=== PATIENT | male | born 1970 | race Two or more races ===

== ENCOUNTER 2023-12-18 19:26 | Inpatient (IN) | payer OTHER ==
[~2023-12-18] VITALS: Ht 175.3 cm; Wt 81.3 kg
[2023-12-18] MEDS ORDERED: ACETAMINOPHEN ES 500 MG TABLET ONE (20:05)
[2023-12-18] MEDS ORDERED: VANCOMYCIN 1 GM /D5W 250 ML PB IV ONE (20:05)
[2023-12-18] MEDS ORDERED: PIPERACI/TAZO 3.375GM/D5W 50ML PB IV ONE (20:05)
[2023-12-18] MEDS: IV LR 1000 ML 1,000 ML BAG IV ONE (20:50)
[2023-12-18 20:54] LABS: BASOPHILS % (AUTO) 0.3 % (0.0-2.0); HEMATOCRIT 38 % (39-51); HEMOGLOBIN 13.1 g/dL (13.5-17.5); LYMPHOCYTES # (AUTO) 0.6 K/uL (0.8-4.8); LYMPHOCYTES % (AUTO) 5.5 % (20.0-44.0); MEAN CORPUSCULAR HEMOGLOBIN 28 PG (26.0-33.0); MEAN CORPUSCULAR HGB CONC 34 g/dl (31.0-36.0); MEAN CORPUSCULAR VOLUME 83 fL (80-96); MONOCYTES # (AUTO) 0.6 K/uL (0.1-1.30); NEUTROPHILS # (AUTO) 9.2 K/uL (1.8-8.9); NEUTROPHILS % (AUTO) 88.2 % (43.0-81.0); PLATELET COUNT (AUTO) 324 K/uL (150-450); RED CELL DISTRIBUTION WIDTH 13.3 % (11.5-15.0); WHITE BLOOD COUNT (AUTO) 10.5 K/uL (4.3-11.0)
[2023-12-18 20:54] LABS: VBG BASE EXCESS -0.6 mmol/L (-3-3); VBG COHb 2.4 %; VBG MetHb 0.2 %; VBG O2Hb 66.4 %; VBG OXYGEN SATURATION 68.2 %; VBG PCO2 38.4 mmHg (40-52); VBG PH 7.409 (7.31-7.41); VBG PO2 33.4 mmHg (30-50); VBG TOTAL HEMOGLOBIN 14.2 G/dL (13.5-18.0); VENT MODE, VBG Venous
[2023-12-18] MEDS: PIPERACILLIN /TAZOBACTAM 3.375 G in IV D5W 50 ML IV ONE (21:00)
[2023-12-18 21:02] LABS: CALCIUM, SERUM 9.2 mg/dL (8.5-10.1); CARBON DIOXIDE 25 mmol/L (21-32); CHLORIDE 100 mmol/L (98-107); CREATININE 0.8 mg/dL (0.6-1.3); GLUCOSE 175 mg/dL (74-106); SODIUM SERUM 132 mmol/L (136-145); UREA NITROGEN, BLOOD 7 mg/dL (7-18)
[2023-12-18 21:05] LABS: INR 1.12 (0.91-1.10); PARTIAL THROMBOPLASTIN TIME 32.1 SEC (24.3-34.3); PROTHROMBIN TIME 11.4 SECS (9.2-11.1)
[2023-12-18 21:08] LABS: ALANINE AMINOTRANSFERASE 19 U/L (12-78); ALBUMIN 3.6 g/dL (3.4-5.0); ALKALINE PHOSPHATASE 70 U/L (46-116); ASPARTATE AMINOTRANSFERASE 18 U/L (15-37); BILIRUBIN,DIRECT 0.3 mg/dL (0.0-0.2); BILIRUBIN,TOTAL 1.1 mg/dL (0.2-1.0); TOTAL PROTEIN, SERUM 7.5 g/dL (6.4-8.2)
[2023-12-18 21:10] LABS: LACTIC ACID 1.2 mmol/L (0.4-2.0)
[2023-12-18 21:20] LABS: ALCOHOL, BLOOD < 3 mg/dL (0-10)
[2023-12-18 21:21] LABS: ACETAMINOPHEN <10 ug/ml (10-30); SALICYLATE 2.3 mg/dL (2.8-20.0)
[2023-12-18 21:27] LABS: SERUM AMMONIA 23 umol/L (11-32)
[2023-12-18 21:43] LABS: THYROID STIMULATING HORMONE 1.098 uIU/mL (0.358-3.74)
[2023-12-18] MEDS: ACETAMINOPHEN ES 500 MG TABLET PO ONE (22:13)
[2023-12-18] MEDS: VANCOMYCIN 1 GM in IV D5W 250 ML IV ONE (22:13)
[2023-12-18] MEDS ORDERED: ALBUTEROL FS 2.5 MG/0.5 ML VIAL.NEB NEB PRN (22:30)
[2023-12-18] MEDS ORDERED: ONDANSETRON HCL/PF 4 MG/2 ML VIAL IVP PRN (22:30)
[2023-12-18] MEDS ORDERED: MORPHINE SULFATE INJ 2 MG/ML DISP.SYRIN IV PRN (22:30)
[2023-12-18] MEDS ORDERED: hydrALAZINE HCL IV 20 MG VIAL IV PRN (22:30)
[2023-12-18] MEDS ORDERED: DEXTROSE 50%-WATER 50 ML DISP.SYRIN IV PRN (22:30)
[2023-12-18] MEDS: IV NS 0.9% 1,000 ML BAG IV ONE (22:46)
[2023-12-18 22:56] LABS: APPEARANCE,URINE CLEAR (CLEAR); BILIRUBIN,URINE 1+ (NEGATIVE); BLOOD, URINE TRACE-INTA Ery/uL (NEGATIVE); COLOR,URINE YELLOW (YELLOW); KETONES,URINE 1+ mg/dL (NEGATIVE); LEUKOCYTE ESTERASE ,URINE NEGATIVE (NEGATIVE); NITRITE, URINE NEGATIVE (NEGATIVE); PH,URINE 6.5 (5.0-8.0); PROTEIN,URINE 1+ mg/dl (NEGATIVE); UGLUCOSE NEGATIVE (NEGATIVE)
[2023-12-18 23:08] LABS: AMPHETAMINE, URINE NEGATIVE (NEGATIVE); BARBITURATE, URINE NEGATIVE (NEGATIVE); BENZODIAZEPINE, URINE NEGATIVE (NEGATIVE); CANNABINOID, URINE NEGATIVE (NEGATIVE); COCCAINE, URINE NEGATIVE (NEGATIVE); OPIATE, URINE NEGATIVE (NEGATIVE); PHENCYCLIDINE SCREEN,URINE NEGATIVE (NEGATIVE)
[2023-12-19 01:36] LABS: ADD URINE CULTURE NO; BACTERIA,URINE None seen /HPF (None Seen); MUCUS,URINE Few /LPF (None Seen); SQUAMOUS EPITHELIAL CELL,UR None Seen /HPF (None Seen); WBC,URINE NONE SEEN /HPF (0-3)
[2023-12-19] MEDS ORDERED: ATOR10TA PO (03:32)
[2023-12-19] MEDS ORDERED: LEVO25TA7 PO (03:32)
[2023-12-19] MEDS ORDERED: METF-440 PO (03:32)
[2023-12-19] MEDS ORDERED: CLOZ100T32 PO (03:32)
[2023-12-19] MEDS ORDERED: LITH300C4 PO (03:32)
[2023-12-19] MEDS ORDERED: GEMF600T90 PO (03:32)
[2023-12-19] MEDS ORDERED: FOLI1CAP7 PO (03:32)
[2023-12-19] MEDS ORDERED: LEVE500T20 PO (03:32)
[2023-12-19] MEDS ORDERED: OMEP40CA21 PO (03:32)
[2023-12-19] MEDS ORDERED: MELO-107 PO (03:32)
[2023-12-19] MEDS ORDERED: FERR325T23 PO (03:32)
[2023-12-19] MEDS ORDERED: DOCU100C36 PO (03:32)
[2023-12-19] MEDS ORDERED: ESCI10TA PO (03:32)
[2023-12-19] MEDS: IV NS 0.9% 1,000 ML IV SCH (04:00)
[2023-12-19 04:58] VITALS: BP 149/85; TEMP 102.7; O2SAT 97
[2023-12-19] MEDS ORDERED: CEFEPIME 1 GM VIAL ONE (05:08)
[2023-12-19] MEDS: ACETAMINOPHEN 325 MG TABLET PO PRN (05:14)
[2023-12-19] MEDS: CEFEPIME 1 GM in IV NS 0.9% 50 ML IV ONE (05:24)
[2023-12-19 07:34] LABS: BASOPHILS % (AUTO) 0.3 % (0.0-2.0); EOSINOPHILS % (AUTO) 0.1 % (0.0-6.0); HEMATOCRIT 33 % (39-51); LYMPHOCYTES # (AUTO) 0.8 K/uL (0.8-4.8); LYMPHOCYTES % (AUTO) 7.3 % (20.0-44.0); MEAN CORPUSCULAR HEMOGLOBIN 30 PG (26.0-33.0); MEAN CORPUSCULAR HGB CONC 36 g/dl (31.0-36.0); MEAN CORPUSCULAR VOLUME 83 fL (80-96); MONOCYTES # (AUTO) 0.7 K/uL (0.1-1.30); NEUTROPHILS # (AUTO) 8.9 K/uL (1.8-8.9); NEUTROPHILS % (AUTO) 85.3 % (43.0-81.0); PLATELET COUNT (AUTO) 273 K/uL (150-450); RED BLOOD CELL COUNT(AUTO) 3.99 MIL/uL (4.5-6.0); RED CELL DISTRIBUTION WIDTH 13.4 % (11.5-15.0); WHITE BLOOD COUNT (AUTO) 10.4 K/uL (4.3-11.0)
[2023-12-19 08:00] VITALS: BP 134/79; TEMP 97.1; O2SAT 96
[2023-12-19] MEDS: BLOOD SUGAR DIAGNOSTIC 1 EACH STRIP VI SCH (08:00)
[2023-12-19] MEDS: HEPARIN SODIUM, PORCINE 5000 UNITS/1 ML VIAL SQ SCH (08:05)
[2023-12-19] MEDS: *INSULIN REGULAR(HUMULIN R)HUM 100 UNIT/ML VIAL SQ PRN (08:05)
[2023-12-19 08:06] LABS: BILIRUBIN,TOTAL 0.9 mg/dL (0.2-1.0); CALCIUM, SERUM 8.7 mg/dL (8.5-10.1); CREATININE 0.7 mg/dL (0.6-1.3); MAGNESIUM 1.8 mg/dL (1.8-2.4); PHOSPHORUS 3.4 mg/dL (2.5-4.9); POTASSIUM 3.6 mmol/L (3.5-5.1); TOTAL PROTEIN, SERUM 7.1 g/dL (6.4-8.2)
[2023-12-19] MEDS ORDERED: LEVE750T10 PO (08:28)
[2023-12-19] MEDS ORDERED: LITH600C PO (08:28)
[2023-12-19] MEDS ORDERED: CLOZ200T29 PO (08:28)
[2023-12-19] MEDS ORDERED: [UNRECOGNIZED DRUG - CODE] PO (08:28)
[2023-12-19] MEDS ORDERED: FOLI0.4T6 PO (08:28)
[2023-12-19] MEDS: CEFEPIME 2 GM in IV D5W 100 ML IV SCH (10:09)
[2023-12-19] MEDS: VANCOMYCIN 1 GM in IV D5W 250 ML IV SCH (10:09)
[2023-12-19 12:00] VITALS: BP 155/86; TEMP 99; O2SAT 98
[2023-12-19] MEDS: INSULIN REGULAR, HUMAN 100 UNIT/ML 3 ML VIAL SQ PRN (13:05)
[2023-12-19 16:00] VITALS: BP 121/67; TEMP 99.5; O2SAT 98
[2023-12-19 20:00] VITALS: BP 119/96; TEMP 100; O2SAT 95
[2023-12-20] VITALS: BP 123/89; TEMP 98.8; O2SAT 94
[2023-12-20 04:00] VITALS: BP 118/91; TEMP 98.6; O2SAT 97
[2023-12-20 07:39] LABS: BASOPHILS % (AUTO) 0.6 % (0.0-2.0); EOSINOPHILS # (AUTO) 0.2 K/uL (0.0-0.7); EOSINOPHILS % (AUTO) 2.3 % (0.0-6.0); HEMATOCRIT 35 % (39-51); HEMOGLOBIN 12.3 g/dL (13.5-17.5); LYMPHOCYTES # (AUTO) 0.8 K/uL (0.8-4.8); LYMPHOCYTES % (AUTO) 10.4 % (20.0-44.0); MEAN CORPUSCULAR HEMOGLOBIN 29 PG (26.0-33.0); MEAN CORPUSCULAR HGB CONC 35 g/dl (31.0-36.0); MEAN CORPUSCULAR VOLUME 82 fL (80-96); MONOCYTES # (AUTO) 0.7 K/uL (0.1-1.30); MONOCYTES % (AUTO) 9.3 % (2.0-12.0); NEUTROPHILS # (AUTO) 5.9 K/uL (1.8-8.9); NEUTROPHILS % (AUTO) 77.4 % (43.0-81.0); PLATELET COUNT (AUTO) 289 K/uL (150-450); RED BLOOD CELL COUNT(AUTO) 4.28 MIL/uL (4.5-6.0); RED CELL DISTRIBUTION WIDTH 13.6 % (11.5-15.0); WHITE BLOOD COUNT (AUTO) 7.6 K/uL (4.3-11.0)
[2023-12-20 08:00] VITALS: BP 99/59; TEMP 98.8; O2SAT 94
[2023-12-20 08:21] LABS: CALCIUM, SERUM 9.4 mg/dL (8.5-10.1); CREATININE 0.7 mg/dL (0.6-1.3); MAGNESIUM 2.1 mg/dL (1.8-2.4); PHOSPHORUS 3.8 mg/dL (2.5-4.9); POTASSIUM 3.8 mmol/L (3.5-5.1)
[2023-12-20 12:00] VITALS: BP 115/83; TEMP 97.7; O2SAT 100
[2023-12-20 16:00] VITALS: BP 140/81; TEMP 98.4; O2SAT 96
[2023-12-20] MEDS: GEMFIBROZIL 600 MG TABLET PO SCH (16:23)
[2023-12-20] MEDS: DOCUSATE SODIUM 100 MG CAPSULE PO SCH (16:23)
[2023-12-20] MEDS: LEVETIRACETAM (250 MG) 250 MG TABLET PO SCH (16:24)
[2023-12-20 20:00] VITALS: BP 138/89; TEMP 98.6; O2SAT 99
[2023-12-20] MEDS: CLOZAPINE 100 MG TABLET PO SCH (21:15)
[2023-12-20] MEDS ORDERED: LITHIUM CARBONATE (300 MG CAP) 300 MG CAPSULE PO SCH (22:00)
[2023-12-21] VITALS: BP 117/92; TEMP 98; O2SAT 98
[2023-12-21 04:00] VITALS: BP 116/85; TEMP 98.2; O2SAT 98
[2023-12-21 07:23] LABS: BASOPHILS % (AUTO) 0.5 % (0.0-2.0); EOSINOPHILS # (AUTO) 0.2 K/uL (0.0-0.7); EOSINOPHILS % (AUTO) 4.2 % (0.0-6.0); HEMATOCRIT 34 % (39-51); HEMOGLOBIN 11.7 g/dL (13.5-17.5); LYMPHOCYTES # (AUTO) 0.8 K/uL (0.8-4.8); LYMPHOCYTES % (AUTO) 13.6 % (20.0-44.0); MEAN CORPUSCULAR HEMOGLOBIN 29 PG (26.0-33.0); MEAN CORPUSCULAR HGB CONC 35 g/dl (31.0-36.0); MEAN CORPUSCULAR VOLUME 83 fL (80-96); MONOCYTES # (AUTO) 0.7 K/uL (0.1-1.30); MONOCYTES % (AUTO) 11.7 % (2.0-12.0); PLATELET COUNT (AUTO) 343 K/uL (150-450); RED BLOOD CELL COUNT(AUTO) 4.06 MIL/uL (4.5-6.0); RED CELL DISTRIBUTION WIDTH 13.2 % (11.5-15.0); WHITE BLOOD COUNT (AUTO) 5.7 K/uL (4.3-11.0)
[2023-12-21 08:00] VITALS: BP 118/68; TEMP 97.5; O2SAT 97
[2023-12-21] MEDS: ESCITALOPRAM OXALATE (10 MG) 10 MG TABLET PO SCH (08:16)
[2023-12-21] MEDS: ATORVASTATIN 10 MG TABLET PO SCH (08:16)
[2023-12-21] MEDS: LEVOTHYROXINE SODIUM 25 MCG TABLET PO SCH (08:16)
[2023-12-21] MEDS: CLOZAPINE 100 MG TABLET PO SCH (08:16)
[2023-12-21] MEDS: FERROUS SULFATE (325 MG) 325 MG/TAB TABLET PO SCH (08:16)
[2023-12-21] MEDS: FOLIC ACID 1 MG TABLET PO SCH (08:17)
[2023-12-21 08:25] LABS: CALCIUM, SERUM 9.3 mg/dL (8.5-10.1); CREATININE 0.6 mg/dL (0.6-1.3); MAGNESIUM 1.9 mg/dL (1.8-2.4); PHOSPHORUS 4.4 mg/dL (2.5-4.9); POTASSIUM 3.8 mmol/L (3.5-5.1)
[2023-12-21] MEDS ORDERED: LITHIUM CARBONATE (300 MG CAP) 300 MG CAPSULE PO SCH (09:00)
[2023-12-21 16:00] VITALS: BP 141/88; TEMP 97.9; O2SAT 98
[2023-12-22] VITALS: BP 126/85; TEMP 98.2; O2SAT 99
[2023-12-22 08:00] VITALS: BP 118/72; TEMP 98.2; O2SAT 94
[2023-12-22 08:05] LABS: BASOPHILS % (AUTO) 0.7 % (0.0-2.0); EOSINOPHILS # (AUTO) 0.2 K/uL (0.0-0.7); EOSINOPHILS % (AUTO) 3.6 % (0.0-6.0); HEMATOCRIT 34 % (39-51); HEMOGLOBIN 11.9 g/dL (13.5-17.5); LYMPHOCYTES % (AUTO) 16.6 % (20.0-44.0); MEAN CORPUSCULAR HEMOGLOBIN 29 PG (26.0-33.0); MEAN CORPUSCULAR HGB CONC 35 g/dl (31.0-36.0); MEAN CORPUSCULAR VOLUME 82 fL (80-96); MONOCYTES # (AUTO) 0.6 K/uL (0.1-1.30); MONOCYTES % (AUTO) 9.8 % (2.0-12.0); NEUTROPHILS # (AUTO) 4.2 K/uL (1.8-8.9); NEUTROPHILS % (AUTO) 69.3 % (43.0-81.0); PLATELET COUNT (AUTO) 422 K/uL (150-450); RED BLOOD CELL COUNT(AUTO) 4.16 MIL/uL (4.5-6.0); RED CELL DISTRIBUTION WIDTH 13.4 % (11.5-15.0); WHITE BLOOD COUNT (AUTO) 6.1 K/uL (4.3-11.0)
[2023-12-22 08:07] LABS: CALCIUM, SERUM 9.4 mg/dL (8.5-10.1); CREATININE 0.6 mg/dL (0.6-1.3); PHOSPHORUS 4.4 mg/dL (2.5-4.9)
[2023-12-22] MEDS: NICOTINE PATCH (21MG) 21 MG PATCH.TD24 TD SCH (12:09)
[2023-12-22 16:00] VITALS: BP 114/68; TEMP 98.5; O2SAT 97
[2023-12-22] MEDS: IV LR 1000 ML 1,000 ML IV PRN (16:25)
[2023-12-22] MEDS: LEVOFLOXACIN (250MG) 250 MG TABLET PO SCH (16:29)
[2023-12-23] VITALS: BP 121/62; TEMP 98.6; O2SAT 96
[2023-12-23 08:00] VITALS: BP 111/70; TEMP 98.6; O2SAT 96
[2023-12-23 08:21] LABS: BASOPHILS # (AUTO) 0.1 K/uL (0.0-0.2); BASOPHILS % (AUTO) 0.7 % (0.0-2.0); EOSINOPHILS # (AUTO) 0.2 K/uL (0.0-0.7); EOSINOPHILS % (AUTO) 2.9 % (0.0-6.0); HEMATOCRIT 33 % (39-51); HEMOGLOBIN 11.6 g/dL (13.5-17.5); LYMPHOCYTES # (AUTO) 1.3 K/uL (0.8-4.8); LYMPHOCYTES % (AUTO) 16.8 % (20.0-44.0); MEAN CORPUSCULAR HEMOGLOBIN 29 PG (26.0-33.0); MEAN CORPUSCULAR HGB CONC 35 g/dl (31.0-36.0); MEAN CORPUSCULAR VOLUME 83 fL (80-96); MONOCYTES # (AUTO) 0.6 K/uL (0.1-1.30); MONOCYTES % (AUTO) 8.3 % (2.0-12.0); NEUTROPHILS # (AUTO) 5.4 K/uL (1.8-8.9); NEUTROPHILS % (AUTO) 71.3 % (43.0-81.0); PLATELET COUNT (AUTO) 427 K/uL (150-450); RED BLOOD CELL COUNT(AUTO) 4.02 MIL/uL (4.5-6.0); RED CELL DISTRIBUTION WIDTH 13.3 % (11.5-15.0); WHITE BLOOD COUNT (AUTO) 7.5 K/uL (4.3-11.0)
[2023-12-23 08:44] LABS: CALCIUM, SERUM 9.2 mg/dL (8.5-10.1); CREATININE 0.5 mg/dL (0.6-1.3); PHOSPHORUS 3.8 mg/dL (2.5-4.9); POTASSIUM 3.7 mmol/L (3.5-5.1)
[2023-12-23 16:00] VITALS: BP 112/66; TEMP 99; O2SAT 97
[2023-12-23 20:10] VITALS: BP 131/83; TEMP 97.5; O2SAT 97
[2023-12-24 00:26] VITALS: BP 136/81; TEMP 97.9; O2SAT 96
[2023-12-24 06:04] VITALS: BP 131/75; TEMP 98; O2SAT 97
[2023-12-24 07:42] LABS: BASOPHILS # (AUTO) 0.1 K/uL (0.0-0.2); BASOPHILS % (AUTO) 0.7 % (0.0-2.0); EOSINOPHILS # (AUTO) 0.2 K/uL (0.0-0.7); EOSINOPHILS % (AUTO) 2.7 % (0.0-6.0); HEMATOCRIT 32 % (39-51); HEMOGLOBIN 11.5 g/dL (13.5-17.5); LYMPHOCYTES # (AUTO) 1.2 K/uL (0.8-4.8); LYMPHOCYTES % (AUTO) 14.9 % (20.0-44.0); MEAN CORPUSCULAR HEMOGLOBIN 30 PG (26.0-33.0); MEAN CORPUSCULAR HGB CONC 36 g/dl (31.0-36.0); MEAN CORPUSCULAR VOLUME 82 fL (80-96); MONOCYTES # (AUTO) 0.6 K/uL (0.1-1.30); NEUTROPHILS # (AUTO) 6.2 K/uL (1.8-8.9); NEUTROPHILS % (AUTO) 74.7 % (43.0-81.0); PLATELET COUNT (AUTO) 468 K/uL (150-450); RED BLOOD CELL COUNT(AUTO) 3.89 MIL/uL (4.5-6.0); RED CELL DISTRIBUTION WIDTH 13.8 % (11.5-15.0); WHITE BLOOD COUNT (AUTO) 8.4 K/uL (4.3-11.0)
[2023-12-24 08:00] VITALS: BP 121/76; TEMP 97.7; O2SAT 92
[2023-12-24 10:52] LABS: CREATININE 0.6 mg/dL (0.6-1.3); MAGNESIUM 1.9 mg/dL (1.8-2.4); PHOSPHORUS 4.3 mg/dL (2.5-4.9); POTASSIUM 3.8 mmol/L (3.5-5.1)
[2023-12-24 16:00] VITALS: BP 132/80; TEMP 98; O2SAT 95
[2023-12-25] VITALS: BP 130/76; TEMP 98.3; O2SAT 96
[2023-12-25 04:00] VITALS: BP 107/78; TEMP 97.7; O2SAT 95
[2023-12-25 08:00] VITALS: BP 111/76; TEMP 97.7; O2SAT 97
== END 2023-12-25 15:50 | DRG 720 ==
LOC: ER 19:28 → TELE1 12-19 02:25
PROVIDERS: ADMIT Internal Medicine; ATTEND Nurse Practitioner Family
DX: A41.9 Sepsis, unspecified organism (principal); G93.41 Metabolic encephalopathy; J15.69 Pneumonia due to other Gram-negative bacteria; E11.9 Type 2 diabetes mellitus without complications; D64.9 Anemia, unspecified; E66.9 Obesity, unspecified; E80.6 Other disorders of bilirubin metabolism; F20.9 Schizophrenia, unspecified; I10 Essential (primary) hypertension; F32.A Depression, unspecified; Z79.84 Long term (current) use of oral hypoglycemic drugs; Z68.26 Body mass index [BMI] 26.0-26.9, adult; R78.89 Finding of other specified substances, not normally found in blood
CPT/HCPCS: 36415; 70450-TC; 71045-TC; 74018; 76856-TC; 80048-TC; 80053-TC; 80076-TC; 80178-TC; 80202-TC; 81001; 82140-TC; 82803-TC; 82962-TC; 83605-TC; 83735-TC; 84100-TC; 84443-TC; 84484-TC; 85025-TC; 85730-TC; 87040-TC; 87081-TC; 87086-TC; A4223; G0378; G0480; J0692; J1644; J1815; J2543; J3370; J7030; J7060; J7120